=== PATIENT | male | born 1960 | race Hispanic/Latino ===

== ENCOUNTER 2024-03-10 18:58 | Observation (INO) ==
[2024-03-10] MEDS ORDERED: IOPAMIDOL 100 ML BOTTLE IV ONE (18:59)
[2024-03-10 19:25] LABS: Basophils # (Auto) 0.01 K/mcL (0.00-0.30); Basophils % (Auto) 0.1 % (0.0-2.0); Eosinophils # (Auto) 0 K/mcL (0.00-0.70); Eosinophils % (Auto) 0 % (0.0-7.0); Hemoglobin 15.5 g/dL (13.7-17.5); Lymphocytes # (Auto) 0.31 K/mcL (1.50-4.80); Lymphocytes % (Auto) 2.4 % (15.5-49.0); Mean Cell Volume 92.4 fL (80.0-100.0); Mean Corpuscular HGB Conc 33.7 g/dL (31.0-36.0); Mean Platelet Volume 10.1 fL (8.8-12.5); Monocytes # (Auto) 0.34 K/mcL (0.10-0.90); Monocytes % (Auto) 2.6 % (1.0-12.0); Neutrophils % (Auto) 94.5 % (38.0-78.0); Platelet Count 199 K/mcL (140-440); RBC 4.98 M/mcL (4.63-6.08); Red Cell Distribution Width 13.4 % (11.5-14.5); WBC 13.1 K/mcL (4.5-11.0)
[2024-03-10 19:50] LABS: ALT/SGPT 18 U/L (<40); AST/SGOT 23 U/L (<40); Albumin 4.1 gm/dL (3.2-5.2); Albumin/Globulin Ratio 1.4 (1.0-2.3); Alkaline Phosphatase 74 U/L (39-117); Bilirubin,Total 1.3 mg/dL (0.1-1.0); Blood Urea Nitrogen 18 mg/dL (8-23); Calcium 9.2 mg/dL (8.6-10.4); Carbon Dioxide 26 mmol/L (22-30); Chloride 99 mmol/L (96-108); Glomerular Filtration Rate 70; Glucose 146 mg/dL (70-105)
[2024-03-10] MEDS: LACTATED RINGERS 1,000 ML IV ONE (20:10)
[2024-03-10] MEDS: PIPERACILLIN SODIUM/TAZOBACTAM 3.375 GM in DEXTROSE 5% IN WATER 50 ML IV ONE (20:53)
[2024-03-10] MEDS: morphine 4 MG/ML VIAL IV ONE ×2 (21:19→21:21)
[2024-03-10] MEDS: CIPROFLOXACIN 400 MG/200 ML BAG IV ONE (21:27)
[2024-03-10 21:30] LABS: Appearance,Urine Clear (Clear); Bacteria,Urine 0 /hpf (0); Bilirubin,Urine Negative (Negative); Color,Urine Yellow; Culture Indicated,Urine No; Glucose,Urine (UA) Negative (Negative); Ketones,Urine Negative (Negative); Leukocyte Esterase,Urine Negative /uL (Negative); Nitrate,Urine Negative (Negative); Protein,Urine Negative (Negative); Urine Blood Trace-intact ery/mcL (Negative); Urine RBC 1 /hpf (0-3); Urine Squamous Epithelial Cell 0 /hpf (0-4); Urine WBC 2 /hpf (0-4); Urobilinogen,Urine Normal
[2024-03-10] MEDS ORDERED: PROMETHAZINE 25 MG/ML VIAL IV PRN (21:57)
[2024-03-10] MEDS: PIPERACILLIN SODIUM/TAZOBACTAM 3.375 GM in 0.9 % SODIUM CHLORIDE 100 ML IV SCH (22:11)
[2024-03-10] MEDS: DEXTROSE 5%-LR 1,000 ML IV SCH ×2 (22:29→22:53)
[2024-03-10] MEDS: ACETAMINOPHEN 1,000 MG/100 ML BAG IV ONE (22:35)
[2024-03-10] MEDS: ACETAMINOPHEN 1,000 MG/100 ML BAG IV PRN (22:42)
[2024-03-11 06:39] LABS: Hematocrit 40.6 % (40.1-51.0); Hemoglobin 13.6 g/dL (13.7-17.5); Mean Cell Volume 92.9 fL (80.0-100.0); Mean Corpuscular HGB Conc 33.5 g/dL (31.0-36.0); Mean Platelet Volume 10.3 fL (8.8-12.5); Platelet Count 187 K/mcL (140-440); RBC 4.37 M/mcL (4.63-6.08); Red Cell Distribution Width 13.7 % (11.5-14.5); WBC 9.3 K/mcL (4.5-11.0)
[2024-03-11 06:48] LABS: Blood Urea Nitrogen 15 mg/dL (8-23); Calcium 8.6 mg/dL (8.6-10.4); Carbon Dioxide 29 mmol/L (22-30); Chloride 102 mmol/L (96-108); Glomerular Filtration Rate 70; Glucose 148 mg/dL (70-105)
[2024-03-11] MEDS: HYDROmorphone 0.5 MG/0.5 ML SYRINGE IV PRN (06:49)
[2024-03-11] MEDS ORDERED: PROPOFOL 200 MG/20 ML VIAL IV ONE (07:07)
[2024-03-11] MEDS ORDERED: LIDOCAINE 2% PF 5 ML VIAL ONE (07:08)
[2024-03-11] MEDS ORDERED: DEXAMETHASONE 10 MG/ML VIAL ONE (07:08)
[2024-03-11] MEDS ORDERED: ROCURONIUM 10 MG/ML ML IV ONE (07:08)
[2024-03-11] MEDS ORDERED: GLYCOPYRROLATE 0.2 MG/ML VIAL IV ONE (07:08)
[2024-03-11] MEDS ORDERED: ONDANSETRON 4 MG/2 ML VIAL ONE (07:08)
[2024-03-11] MEDS ORDERED: HYDROmorphone 1 MG/ML SYRINGE ONE (07:09)
[2024-03-11] MEDS ORDERED: PHENYLephrine 1 MG/10 ML SYRINGE (ANEST) ONE (08:01)
[2024-03-11] MEDS ORDERED: SUGAMMADEX SODIUM 200 MG/2 ML VIAL IV ONE (08:03)
[2024-03-11] MEDS: BUPIVACAINE W/EPI 0.5% 50 ML VIAL IJ ONE (08:10)
[2024-03-11] MEDS ORDERED: IPRATROPIUM/ALBUTEROL 3 ML AMPUL.NEB NEB PRN (08:57)
[2024-03-11] MEDS ORDERED: ONDANSETRON 4 MG/2 ML VIAL IV PRN (08:57)
[2024-03-11] MEDS ORDERED: fentaNYL 100 MCG/2 ML VIAL IV PRN (08:57)
[2024-03-11] MEDS: LACTATED RINGERS 1,000 ML IV SCH (10:02)
[2024-03-11] MEDS: PIPERACILLIN SODIUM/TAZOBACTAM 3.375 GM in DEXTROSE 5% IN WATER 100 ML IV SCH (13:12)
[2024-03-11] MEDS: DEXTROSE 5%-LR 1,000 ML IV SCH (14:35)
[2024-03-11] MEDS: TAMSULOSIN 0.4 MG CAPSULE PO SCH (20:53)
[2024-03-12] MEDS: 0.9 % SODIUM CHLORIDE 10 ML SYRINGE IV SCH (05:30)
[2024-03-12 06:46] LABS: Hematocrit 36.4 % (40.1-51.0); Hemoglobin 12.1 g/dL (13.7-17.5); Mean Cell Volume 94.3 fL (80.0-100.0); Mean Corpuscular HGB Conc 33.2 g/dL (31.0-36.0); Mean Platelet Volume 10.5 fL (8.8-12.5); Platelet Count 187 K/mcL (140-440); RBC 3.86 M/mcL (4.63-6.08); Red Cell Distribution Width 13.9 % (11.5-14.5); WBC 10.7 K/mcL (4.5-11.0)
[2024-03-12] MEDS ORDERED: oxyCODONE IR 5 MG TABLET PO PRN (09:12)
== END 2024-03-12 10:45 | disposition home or self-care (01) ==
LOC: MEDSUR 18:58 → ED 18:58 → MEDSUR 22:06
PROVIDERS: ADMIT Surgery Surgical Critical Care; ATTEND Surgery Surgical Critical Care
PROC: LAPAPPY (ICD-10-PCS; 2024-03-11 07:47)